=== PATIENT | female | born 1945 | race Hispanic/Latino ===

== ENCOUNTER → 2017-08-09 | Day surgery (SDC) | payer OTHER ==
[2017-08-06 08:50] LABS: BASOPHILS % 0.5 % (0.0-1.0); EOSINOPHILS # (AUTO) 0.1 (0.0-0.4); EOSINOPHILS % 1.1 % (0.0-6.0); HEMATOCRIT 33.1 % (34.2-44.1); HEMOGLOBIN 10.9 g/dL (12.0-16.0); LYMPHOCYTES # (AUTO) 1.4 (1.0-3.2); LYMPHOCYTES % 31.9 % (18.0-39.1); MEAN CORPUSCULAR HEMOGLOBIN 31.2 pg (28-32); MEAN CORPUSCULAR HGB CONC 32.9 g/dL (31-35); MEAN CORPUSCULAR VOLUME 94.8 fL (81-99); MONOCYTES # (AUTO) 0.4 (0.2-0.8); MONOCYTES % 8.4 % (4.4-11.3); NEUTROPHILS # (AUTO) 2.5 (2.1-6.9); NEUTROPHILS % 57.9 % (38.7-80.0); PLATELET COUNT 180 x10e3/uL (140-360); RED BLOOD COUNT 3.49 x10e6/uL (3.6-5.1); RED CELL DISTRIBUTION WIDTH 14.3 % (11.7-14.4)
--- NOTE | 2017-08-06 09:48 | Diagnostic Imaging Report ---
PROCEDURE:CHEST 2 VIEWS TECHNIQUE:PA and lateral chest INDICATION:Preoperative evaluation for hand surgery COMPARISON:Patients [facility], , CHEST 2 VIEWS, 06/29/2016, 10:50. FINDINGS: Lungs are clear and symmetrically inflated. No pleural effusions. Normal heart size, mediastinal contour, and pulmonary vasculature. Intact skeleton. Low lumbar fusion. CONCLUSION: Stable normal chest. Dictated by: Myron Whitlock M.D. on 08/06/2017 at 9:48 Electronically approved by: Myron Whitlock M.D. on 08/06/2017 at 9:48
[~2017-08-09] MED LIST: BUPIVACAINE HCL 0.5% 10ML MPF VIAL INJ ONE; CLINDAMYCIN PHOS 900MG/ D5W 50 50 ML IV ONE; CYCLOBENZAPRINE10 MG PO; DEXAMETHASONE SOD PHOS INJ 4 MG/ML VIAL ONE; FENTANYL CITRATE/PF 100MCG/2 ML INJ ONE; GLEEVEC400 MG PEG; GLEEVEC400 MG PO; KETOROLAC TROMETHAMINE 30 MG/ML VIAL ONE; LABETALOL HCL 5MG/ML MDV 20 ML ONE; LIDOCAINE HCL 2% LOCAL INJ 5 ML SDV VIAL INJ ONE; METAXALONE800 MG PO; MUPIROCIN 2% OINT 22 GM TUBE ONE; OMEPRAZOLE40 MG PO; ONDANSETRON HCL INJ 2 MG/ML VIAL ONE; PROPOFOL IV EMULSION 10 MG/ML 20 ML VIAL ONE; SEVOFLURANE INHAL SOLN 250 ML PEN BTL ONE; ULTRAM50 MG PO
--- NOTE | 2017-08-09 10:33 | Operative Report ---
DATE OF PROCEDURE: August 09, 2017 SPA ASSOCIATE: Artem Huff PA-C The patient was brought to the operating room for induction of anesthesia. Throughout this case, my PA's assistance was necessary for retraction of soft tissue and positioning of the extremity. This allows for efficient and technically successful execution of the operation and is considered medically necessary. PREOPERATIVE DIAGNOSIS: Bilateral trigger finger and bilateral trigger thumb. POSTOPERATIVE DIAGNOSIS: Bilateral trigger finger and bilateral trigger thumb. PROCEDURE: Release of bilateral trigger thumb and 3rd finger. 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 She has failed conservative management and would like to have surgical release. The risks and benefits have been explained to the patient. She states she understands and wishes to proceed. DESCRIPTION OF PROCEDURE: The patient was brought to the operating room and placed under general anesthetic. Both upper extremities were prepped and draped in a sterile manner. A preoperative time out was performed. Initial attention was directed towards the left upper extremity. An incision was made over the base of the thumb. The A1 javan was dissected out. Care was taken to avoid injury to the neurovascular bundle. The javan was released. The tendon was gently retracted from the wound and noted to be free of any stricture. The wound was then irrigated and closed with 2 interrupted nylon stitches. The same procedure was then performed on the left 3rd finger, the right 3rd finger and the right thumb. The patient was placed into bilateral sterile bandages. She was extubated and transported to the recovery room in stable condition. Blood loss less than 5 mL, and all needle and sponge counts were correct. Job#: [id number]
== END | disposition home or self-care (01) ==
LOC: OR 06:38
PROVIDERS: ATTEND Specialist
DX: M65.312 Trigger thumb, left thumb (principal); M65.311 Trigger thumb, right thumb; M65.332 Trigger finger, left middle finger; M65.331 Trigger finger, right middle finger; C95.90 Leukemia, unspecified not having achieved remission; Z01.810 Encounter for preprocedural cardiovascular examination; Z01.812 Encounter for preprocedural laboratory examination; Z01.818 Encounter for other preprocedural examination
CPT/HCPCS: 26055 ×4; 36415; 71046; 85025; 93005; J1100; J1885; J2001; J2405; J3490

== ENCOUNTER 2020-07-06 17:09 | Inpatient (IN) | payer OTHER ==
[~2020-07-06] VITALS: Ht 167.6 cm; Wt 89.8 kg
[~2020-07-06 17:09] MED LIST changes: -BUPIVACAINE HCL 0.5% 10ML MPF VIAL INJ ONE; -CLINDAMYCIN PHOS 900MG/ D5W 50 50 ML IV ONE; -DEXAMETHASONE SOD PHOS INJ 4 MG/ML VIAL ONE; -FENTANYL CITRATE/PF 100MCG/2 ML INJ ONE; -KETOROLAC TROMETHAMINE 30 MG/ML VIAL ONE; -LABETALOL HCL 5MG/ML MDV 20 ML ONE; -LIDOCAINE HCL 2% LOCAL INJ 5 ML SDV VIAL INJ ONE; -MUPIROCIN 2% OINT 22 GM TUBE ONE; -ONDANSETRON HCL INJ 2 MG/ML VIAL ONE; -PROPOFOL IV EMULSION 10 MG/ML 20 ML VIAL ONE; -SEVOFLURANE INHAL SOLN 250 ML PEN BTL ONE
[2020-07-06] MEDS ORDERED: ZESTRIL5 MG (17:34)
[2020-07-06] MEDS ORDERED: CYMBALTA30 MG (17:34)
[2020-07-06] MEDS ORDERED: GABAPENTIN400 MG PO (17:34)
[2020-07-06 17:57] LABS: BASOPHILS % 0.4 % (0.0-1.0); EOSINOPHILS # (AUTO) 0.1 (0.0-0.4); EOSINOPHILS % 0.8 % (0.0-6.0); HEMATOCRIT 33.1 % (34.2-44.1); HEMOGLOBIN 10.7 g/dL (12.0-16.0); LYMPHOCYTES # (AUTO) 1.7 (1.0-3.2); LYMPHOCYTES % 19.1 % (18.0-39.1); MEAN CORPUSCULAR HEMOGLOBIN 31.5 pg (28-32); MEAN CORPUSCULAR HGB CONC 32.3 g/dL (31-35); MEAN CORPUSCULAR VOLUME 97.4 fL (81-99); MONOCYTES % 11.2 % (4.4-11.3); NEUTROPHILS # (AUTO) 6.1 (2.1-6.9); NEUTROPHILS % 68.1 % (38.7-80.0); PLATELET COUNT 364 x10e3/uL (140-360); RED CELL DISTRIBUTION WIDTH 15.3 % (11.7-14.4)
[2020-07-06 18:17] LABS: ALBUMIN/GLOBULIN RATIO 1.1 (0.8-2.0); ANION GAP 16.5 mmol/L (8-16); CALCIUM 8.1 mg/dL (8.4-10.2); CREATININE, SERUM 1.42 mg/dL (0.57-1.11); POTASSIUM 3.5 mmol/L (3.5-5.1)
[2020-07-06 18:23] LABS: CREATINE KINASE MB 7.3 ng/mL (0-5.0)
[2020-07-06] MEDS ORDERED: SODIUM CHLORIDE 0.9% 1000ML 1,000 ML IV STA (18:56)
[2020-07-06 21:44] LABS: CREATINE KINASE MB 5.7 ng/mL (0-5.0)
[2020-07-06] MEDS: SODIUM CHLORIDE 0.9% 1000ML 1,000 ML IV SCH (23:31)
[2020-07-06] MEDS ORDERED: FUROSEMIDE INJ 10 MG/ML 4 ML VIAL IV ONE (23:45)
[2020-07-07 04:32] LABS: BASOPHILS % 0.3 % (0.0-1.0); EOSINOPHILS # (AUTO) 0.1 (0.0-0.4); EOSINOPHILS % 1.3 % (0.0-6.0); HEMATOCRIT 30.8 % (34.2-44.1); HEMOGLOBIN 10.1 g/dL (12.0-16.0); LYMPHOCYTES % 16.2 % (18.0-39.1); MEAN CORPUSCULAR HEMOGLOBIN 31.9 pg (28-32); MEAN CORPUSCULAR HGB CONC 32.8 g/dL (31-35); MEAN CORPUSCULAR VOLUME 97.2 fL (81-99); MONOCYTES # (AUTO) 0.8 (0.2-0.8); MONOCYTES % 12.9 % (4.4-11.3); NEUTROPHILS # (AUTO) 4.2 (2.1-6.9); NEUTROPHILS % 68.8 % (38.7-80.0); PLATELET COUNT 342 x10e3/uL (140-360); RED BLOOD COUNT 3.17 x10e6/uL (3.6-5.1)
[2020-07-07 04:51] LABS: ALBUMIN 2.6 g/dL (3.5-5.0); ALBUMIN/GLOBULIN RATIO 1.1 (0.8-2.0); ANION GAP 14.3 mmol/L (8-16); CALCIUM 7.7 mg/dL (8.4-10.2); CREATININE, SERUM 0.94 mg/dL (0.57-1.11); POTASSIUM 3.3 mmol/L (3.5-5.1)
[2020-07-07 05:10] LABS: CREATINE KINASE MB 4.9 ng/mL (0-5.0)
[2020-07-07] MEDS: SODIUM CHLORIDE 0.9% 1000ML 1,000 ML IV SCH ×2 (07:00→14:16)
[2020-07-07 15:42] VITALS: BP 122/54
[2020-07-07 16:08] VITALS: BP 129/63
[2020-07-07 17:11] LABS: CREATINE KINASE MB 9.2 ng/mL (0-5.0)
[2020-07-07] MEDS ORDERED: TRAMADOL HCL 50 MG TAB PO SCH (17:30)
[2020-07-07] MEDS ORDERED: HYDRALAZINE HCL 20 MG/ML VIAL IV PRN (17:30)
[2020-07-07] MEDS ORDERED: FUROSEMIDE INJ 10 MG/ML 2 ML VIAL IV ONE (17:30)
[2020-07-07 20:00] VITALS: BP 116/50
[2020-07-07] MEDS ORDERED: MAGNESIUM/ALUMINUM/SIMETHICONE 30 ML UDC PO PRN (21:00)
[2020-07-07] MEDS ORDERED: ACETAMINOPHEN 325 MG TAB PO PRN (21:00)
[2020-07-07 22:45] VITALS: BP 116/50
[2020-07-08] VITALS (9 sets, daily range): BP systolic 112–167; BP diastolic 54–74
[2020-07-08] MEDS: SODIUM CHLORIDE 0.9% 1000ML 1,000 ML IV SCH ×3 (00:20→16:15)
[2020-07-08 06:02] LABS: CHOL/HDL RATIO 2.5 (3.0-3.6)
[2020-07-08 06:13] LABS: FREE THYROXINE INDEX 2.3607 (1.4-3.8); THYROID STIMULATING HORMONE 1.036 uIU/mL (0.350-4.940)
[2020-07-08 06:14] LABS: BLOOD UREA NITROGEN 10 mg/dL (7-26); BUN/CREATININE RATIO 14 (6-25); CALCIUM 7.5 mg/dL (8.4-10.2); CARBON DIOXIDE 26 mmol/L (22-29); CHLORIDE 106 mmol/L (98-107); CREATININE, SERUM 0.72 mg/dL (0.57-1.11); EST GLOMERULAR FILTRATION RATE > 60 ML/MIN (60-); GLUCOSE 99 mg/dL (74-118); SODIUM 140 mmol/L (136-145)
[2020-07-08] MEDS: FUROSEMIDE INJ 10 MG/ML 4 ML VIAL IV SCH (08:57)
[2020-07-08] MEDS: DULOXETINE HCL 30 MG DELAYED RELEASE PO SCH (08:58)
[2020-07-08] MEDS: LISINOPRIL 2.5 MG TAB PO SCH (08:58)
[2020-07-08] MEDS: GABAPENTIN 400 MG CAP PO SCH (08:58)
[2020-07-08] MEDS: PANTOPRAZOLE SOD 40 MG TABEC PO SCH (08:59)
[2020-07-08] MEDS: METAXALONE 800 MG TAB PO SCH (09:00)
[2020-07-08] MEDS: ONDANSETRON HCL INJ 2MG/ML 2ML 2 MG/ML VIAL IV PRN (12:56)
[2020-07-08] MEDS ORDERED: GADOBENATE DIMEGLUMINE 1 ML IV ONE (13:49)
[2020-07-08] MEDS: ENOXAPARIN SOD INJ 40 MG/0.4 ML SYR SC SCH (16:33)
[2020-07-09] VITALS (8 sets, daily range): BP systolic 120–148; BP diastolic 48–66
[2020-07-09] MEDS: SODIUM CHLORIDE 0.9% 1000ML 1,000 ML IV SCH ×3 (00:46→16:33)
[2020-07-09] MEDS: METAXALONE 800 MG TAB PO SCH (08:10)
[2020-07-09] MEDS: GABAPENTIN 400 MG CAP PO SCH (08:11)
[2020-07-09] MEDS: LISINOPRIL 2.5 MG TAB PO SCH (08:11)
[2020-07-09] MEDS: DULOXETINE HCL 30 MG DELAYED RELEASE PO SCH (08:11)
[2020-07-09] MEDS: FUROSEMIDE INJ 10 MG/ML 4 ML VIAL IV SCH (08:12)
[2020-07-09] MEDS: PANTOPRAZOLE SOD 40 MG TABEC PO SCH (08:12)
[2020-07-09] MEDS: ONDANSETRON HCL INJ 2MG/ML 2ML 2 MG/ML VIAL IV PRN (08:12)
[2020-07-09 12:05] LABS: ANION GAP 16.7 mmol/L (8-16); BLOOD UREA NITROGEN 8 mg/dL (7-26); BUN/CREATININE RATIO 10 (6-25); CALCIUM 7.8 mg/dL (8.4-10.2); CARBON DIOXIDE 24 mmol/L (22-29); CHLORIDE 103 mmol/L (98-107); CREATININE, SERUM 0.78 mg/dL (0.57-1.11); EST GLOMERULAR FILTRATION RATE > 60 ML/MIN (60-); GLUCOSE 110 mg/dL (74-118); SODIUM 141 mmol/L (136-145)
[2020-07-09 12:09] LABS: POTASSIUM 2.7 mmol/L (3.5-5.1)
[2020-07-09] MEDS ORDERED: POTASSIUM CHLORIDE 20 MEQ TAB CR PO STA (12:14)
[2020-07-09] MEDS ORDERED: POTASSIUM CHLORIDE 20 MEQ TAB CR PO ONE (14:20)
[2020-07-09] MEDS: ENOXAPARIN SOD INJ 40 MG/0.4 ML SYR SC SCH (16:33)
[2020-07-10] VITALS (8 sets, daily range): BP systolic 105–159; BP diastolic 41–60
[2020-07-10 07:14] LABS: ANION GAP 13.4 mmol/L (8-16); BLOOD UREA NITROGEN 7 mg/dL (7-26); BUN/CREATININE RATIO 10 (6-25); CALCIUM 7.6 mg/dL (8.4-10.2); CARBON DIOXIDE 24 mmol/L (22-29); CHLORIDE 107 mmol/L (98-107); CREATINE KINASE 354 IU/L (29-168); CREATININE, SERUM 0.71 mg/dL (0.57-1.11); EST GLOMERULAR FILTRATION RATE > 60 ML/MIN (60-); GLUCOSE 105 mg/dL (74-118); POTASSIUM 3.4 mmol/L (3.5-5.1); SODIUM 141 mmol/L (136-145)
[2020-07-10] MEDS: DULOXETINE HCL 30 MG DELAYED RELEASE PO SCH (08:30)
[2020-07-10] MEDS: GABAPENTIN 400 MG CAP PO SCH (08:30)
[2020-07-10] MEDS: FUROSEMIDE INJ 10 MG/ML 4 ML VIAL IV SCH (08:30)
[2020-07-10] MEDS: METAXALONE 800 MG TAB PO SCH (08:31)
[2020-07-10] MEDS: LISINOPRIL 2.5 MG TAB PO SCH (08:31)
[2020-07-10] MEDS: PANTOPRAZOLE SOD 40 MG TABEC PO SCH (08:31)
[2020-07-10] MEDS: TRAMADOL HCL 50 MG TAB PO PRN (12:06)
[2020-07-10] MEDS: ENOXAPARIN SOD INJ 40 MG/0.4 ML SYR SC SCH (17:40)
[2020-07-11] VITALS (8 sets, daily range): BP systolic 97–153; BP diastolic 39–71
[2020-07-11] MEDS: DULOXETINE HCL 30 MG DELAYED RELEASE PO SCH (08:52)
[2020-07-11] MEDS: GABAPENTIN 400 MG CAP PO SCH (08:52)
[2020-07-11] MEDS: FUROSEMIDE INJ 10 MG/ML 4 ML VIAL IV SCH (08:52)
[2020-07-11] MEDS: LISINOPRIL 2.5 MG TAB PO SCH (08:53)
[2020-07-11] MEDS: PANTOPRAZOLE SOD 40 MG TABEC PO SCH (08:53)
[2020-07-11] MEDS: METAXALONE 800 MG TAB PO SCH (08:53)
[2020-07-11] MEDS: ENOXAPARIN SOD INJ 40 MG/0.4 ML SYR SC SCH (16:28)
[2020-07-11] MEDS ORDERED: METOPROLOL TARTRATE 25 MG TAB PO SCH (19:30)
[2020-07-11 19:58] LABS: ANION GAP 16.1 mmol/L (8-16); CALCIUM 8.5 mg/dL (8.4-10.2); CREATININE, SERUM 1.02 mg/dL (0.57-1.11); POTASSIUM 3.1 mmol/L (3.5-5.1)
[2020-07-11 20:28] LABS: MAGNESIUM 1.3 MG/DL (1.3-2.1)
[2020-07-11] MEDS: CARVEDILOL 12.5 MG TAB PO SCH (20:30)
[2020-07-11 20:50] LABS: FREE THYROXINE INDEX 2.9529 (1.4-3.8); THYROID STIMULATING HORMONE 0.994 uIU/mL (0.350-4.940)
[2020-07-12] VITALS: BP 100/50
[2020-07-12 04:00] VITALS: BP 90/44
[2020-07-12 08:02] VITALS: BP 127/55
[2020-07-12] MEDS: TRAMADOL HCL 50 MG TAB PO PRN (08:40)
[2020-07-12 08:45] VITALS: BP 127/55
[2020-07-12] MEDS: CARVEDILOL 12.5 MG TAB PO SCH (09:00)
[2020-07-12] MEDS: PANTOPRAZOLE SOD 40 MG TABEC PO SCH (09:00)
[2020-07-12] MEDS: GABAPENTIN 400 MG CAP PO SCH (09:00)
[2020-07-12] MEDS ORDERED: LISINOPRIL 2.5 MG TAB PO SCH (09:00)
[2020-07-12] MEDS: DULOXETINE HCL 30 MG DELAYED RELEASE PO SCH (09:00)
[2020-07-12] MEDS: METAXALONE 800 MG TAB PO SCH (09:00)
[2020-07-12] MEDS ORDERED: POTASSIUM CHLORIDE 20 MEQ TAB CR PO ONE (09:45)
[2020-07-12 11:39] VITALS: BP 129/60
[2020-07-12] MEDS ORDERED: SODIUM CHLORIDE 0.9% 50ML 50 ML ONE (11:41)
[2020-07-12] MEDS ORDERED: IOPAMIDOL 370 MG/ML 200 ML INFUS..BTL INJ ONE (11:41)
[2020-07-12] MEDS ORDERED: APIXABAN 5 MG TABLET PO SCH (14:30)
[2020-07-12] MEDS ORDERED: ONDANSETRON HCL 4 MG ORAL DISINTEGRATING TAB PO PRN (15:45)
[2020-07-12] MEDS ORDERED: CARVEDILOL 12.5 MG TAB PO SCH (17:00)
== END 2020-07-12 15:43 | disposition home or self-care (01) | DRG 558 ==
LOC: ER 17:24 → ERHOLD 07-07 00:09 → MED/SURG2 07-07 13:50
PROVIDERS: ADMIT Internal Medicine; ATTEND Internal Medicine
DX: M62.82 Rhabdomyolysis (principal); G72.0 Drug-induced myopathy; N17.9 Acute kidney failure, unspecified; E87.6 Hypokalemia; T45.1X5A Adverse effect of antineoplastic and immunosuppressive drugs, initial encounter; G62.89 Other specified polyneuropathies; M51.17 Intervertebral disc disorders with radiculopathy, lumbosacral region; Z20.822 Contact with and (suspected) exposure to COVID-19; D64.9 Anemia, unspecified; E11.40 Type 2 diabetes mellitus with diabetic neuropathy, unspecified; M41.9 Scoliosis, unspecified
CPT/HCPCS: 36415; 71045; 71260; 72158; 80048; 80053; 80061; 82550; 82553; 83735; 83880; 84436; 84443; 84479; 84484; 85025; 86140; 93005; 93306; 93970; 99283; 99284; J1650; J1940; J2405; J7030; Q9967; U0002

== ENCOUNTER 2020-08-14 15:55 | Outpatient (RCR) | payer MEDICARE ==
[~2020-08-14 15:55] MED LIST changes: +CYMBALTA30 MG; +GABAPENTIN400 MG PO; +ZESTRIL5 MG
== END 2020-08-18 ==
LOC: WCC 15:55
PROVIDERS: ATTEND Family Medicine
DX: G56.00 Carpal tunnel syndrome, unspecified upper limb (principal); G90.09 Other idiopathic peripheral autonomic neuropathy; R60.0 Localized edema; M17.11 Unilateral primary osteoarthritis, right knee; M79.661 Pain in right lower leg; I10 Essential (primary) hypertension; K21.9 Gastro-esophageal reflux disease without esophagitis
CPT/HCPCS: 93971

== ENCOUNTER 2020-09-23 14:01 | Emergency (ER) | payer MEDICARE, OTHER ==
[~2020-09-23] VITALS: Ht 167.6 cm; Wt 89.8 kg
[2020-09-23] MEDS ORDERED: ONDANSETRON HCL INJ 2MG/ML 2ML 2 MG/ML VIAL IV STA (14:11)
[2020-09-23] MEDS ORDERED: SODIUM CHLORIDE 0.9% 1000ML 1,000 ML IV STA (14:11)
[2020-09-23 14:33] LABS: BASOPHILS % 0.5 % (0.0-1.0); EOSINOPHILS % 0.5 % (0.0-6.0); HEMATOCRIT 27.6 % (34.2-44.1); HEMOGLOBIN 8.8 g/dL (12.0-16.0); LYMPHOCYTES # (AUTO) 1.2 (1.0-3.2); LYMPHOCYTES % 19.3 % (18.0-39.1); MEAN CORPUSCULAR HEMOGLOBIN 29.9 pg (28-32); MEAN CORPUSCULAR HGB CONC 31.9 g/dL (31-35); MEAN CORPUSCULAR VOLUME 93.9 fL (81-99); MONOCYTES # (AUTO) 0.4 (0.2-0.8); MONOCYTES % 6.3 % (4.4-11.3); NEUTROPHILS # (AUTO) 4.6 (2.1-6.9); NEUTROPHILS % 73.1 % (38.7-80.0); PLATELET COUNT 454 x10e3/uL (140-360); RED BLOOD COUNT 2.94 x10e6/uL (3.6-5.1); RED CELL DISTRIBUTION WIDTH 15.6 % (11.7-14.4)
[2020-09-23 14:42] LABS: INR 1.3; PROTHROMBIN TIME 16.9 seconds (11.9-14.5)
[2020-09-23 14:52] LABS: ALBUMIN 3.6 g/dL (3.5-5.0); ALBUMIN/GLOBULIN RATIO 1.2 (0.8-2.0); ANION GAP 17.1 mmol/L (8-16); CALCIUM 8.9 mg/dL (8.4-10.2); CREATININE, SERUM 1.34 mg/dL (0.57-1.11); POTASSIUM 4.1 mmol/L (3.5-5.1)
== END 2020-09-23 17:16 | disposition other institution (70) ==
LOC: ER 14:12
DX: I62.02 Nontraumatic subacute subdural hemorrhage (principal); R51.9 Headache, unspecified; K21.9 Gastro-esophageal reflux disease without esophagitis; F32.9 Major depressive disorder, single episode, unspecified; M54.9 Dorsalgia, unspecified; G89.29 Other chronic pain
CPT/HCPCS: 36415; 70450; 80053; 85025; 85610; 99284; J2405; J7030; U0002